=== PATIENT | female | born 1960 | race Caucasian/White ===

== ENCOUNTER 2018-01-11 09:11 | Emergency (ER) | payer MEDICAID ==
[~2018-01-11] VITALS: Ht 165.1 cm; Wt 82.0 kg
[~2018-01-11 09:11] MED LIST: ALBU8I INH; ECASA PO; LAMO150 PO; LISI-357 PO; PARO20TA PO; SIMV20TA PO
[2018-01-11 09:20] VITALS: BP 155/80; PULSE 61; RESP 16; TEMP 98.8; O2SAT 99
--- NOTE | 2018-01-11 09:36 | PD ---
HPI Chief Complaint: Complaint Time Seen by Provider: 09:29 Travel History International Travel<30 days: No Contact w/Intl Traveler<30days: No Traveled to known affect area: No History of Present Illness HPI The patient is a 57-year-old female who presents to the emergency department for dysuria. The patient is from [place], in town visiting family. The patient developed urinary symptoms last Thursday. She complains of dysuria, frequency, urgency, decreased urinary output. She does complain of mild suprapubic discomfort. She denies any nausea, vomiting, or back pain. She denies any vaginal discharge or vaginal bleeding. She denies any CC fever, chills, or sweats. She does have a history of UTIs in the past with similar symptoms, denies any history nephrolithiasis. Symptoms are moderate, no current alleviating or exacerbating factors. PFSH Past Medical History Blood Disorders: No Anxiety: Yes Depression: No Heart Rhythm Problems: No Cancer: No Cardiovascular Problems: Yes High Cholesterol: Yes Chest Pain: No Congestive Heart Failure: No Endocrine: No Genitourinary: No Hypertension: Yes Immune Disorder: No Musculoskeletal: No Neurologic: Yes (EPILEPSY) Psychiatric: Yes Respiratory: No Seizures: Yes Tubal Ligation: Yes Past Surgical History Appendectomy: Yes Hysterectomy: Yes Social History Alcohol Use: No Tobacco Use: Yes Substance Use: No Allergies-Medications (Allergen,Severity, Reaction): Coded Allergies: No Known Allergies (Verified Adverse Reaction, Unknown, 01/11/18) Reported Meds & Prescriptions Reported Meds & Active Scripts Active Lisinopril 5 mg (Lisinopril) 5 Mg Tab 1 Tab PO DAILY Aspirin EC (Aspirin) 325 Mg Tab 325 Mg PO DAILY Reported Ventolin Hfa (Albuterol Sulfate) 8 Gm Aero 2 Puff INH Q4 PRN * SHAKE WELL BEFORE USE * Paroxetine Hcl 20 Mg Tab 20 Mg PO DAILY Simvastatin 20 Mg Tab 20 Mg PO HS Lamictal (Lamotrigine) 150 Mg Tab 250 Mg PO BID Take 1 tablet (150mg) with 100mg tablet for a total dose of 250mg twice daily Review of Systems Except as stated in HPI: all other systems reviewed are Neg General / Constitutional: No: Fever Gastrointestinal: No: Nausea, Vomiting, Abdominal Pain Genitourinary: Positive: Urgency, Frequency, Dysuria, Decreased Urinary Output , Pelvic Pain (suprapubic discomfort), No: Hematuria, Discharge, Vaginal Bleeding Skin: No Rash, No Itching Physical Exam Narrative GENERAL: Awake, alert, pleasant 57-year-old female who appears her stated age and is in no acute respiratory distress. SKIN: Focused skin assessment warm/dry. HEAD: Atraumatic. Normocephalic. EYES: Pupils equal and round. No scleral icterus. No injection or drainage. GASTROINTESTINAL: Abdomen soft, minimal suprapubic tenderness. No guarding or rigidity. Back: No CVA tenderness. MUSCULOSKELETAL: No obvious deformities. No clubbing. No cyanosis. No edema. NEUROLOGICAL: Awake and alert. No obvious cranial nerve deficits. Motor grossly within normal limits. Normal speech. PSYCHIATRIC: Appropriate mood and affect; insight and judgment normal. Data Data Last Documented VS Vital Signs Date Time Temp Pulse Resp B/P (MAP) Pulse Ox O2 Delivery O2 Flow Rate FiO2 01/11/18 09:20 98.8 61 16 155/80 (105) 99 Orders Orders Urinalysis - C+S If Indicated (01/11/18 09:32) Urine Culture (01/11/18 09:40) Labs Laboratory Tests Test 01/11/18 09:40 Urine Color YELLOW Urine Turbidity CLOUDY Urine pH 6.0 Urine Specific [place] 1.020 Urine Protein TRACE mg/dL Urine Glucose (UA) NEG mg/dL Urine Ketones NEG mg/dL Urine Occult Blood MOD Urine Nitrite NEG Urine Bilirubin NEG Urine Urobilinogen LESS THAN 2.0 MG/DL Urine Leukocyte Esterase LARGE Urine RBC 44 /hpf Urine WBC /hpf Urine Squamous Epithelial Cells 1 /hpf Urine Bacteria RARE /hpf Microscopic Urinalysis Comment CULTURE INDICATED [facility] Medical Decision Making Medical Screen Exam Complete: Yes Emergency Medical Condition: Yes Medical Record Reviewed: Yes Interpretation(s) Laboratory Tests Test 01/11/18 09:40 Urine Color YELLOW Urine Turbidity CLOUDY Urine pH 6.0 Urine Specific [place] 1.020 Urine Protein TRACE mg/dL Urine Glucose (UA) NEG mg/dL Urine Ketones NEG mg/dL Urine Occult Blood MOD Urine Nitrite NEG Urine Bilirubin NEG Urine Urobilinogen LESS THAN 2.0 MG/DL Urine Leukocyte Esterase LARGE Urine RBC 44 /hpf Urine WBC /hpf Urine Squamous Epithelial Cells 1 /hpf Urine Bacteria RARE /hpf Microscopic Urinalysis Comment CULTURE INDICATED Differential Diagnosis Differential diagnosis includes UTI, hemorrhagic cystitis, cystitis, pyelonephritis, nephrolithiasis, acute renal failure. Narrative Course A UA with C&S was sent to lab. UA reveals innumerable WBCs, 44 RBCs, and leukocyte Estrace. Patient has symptoms consistent with UTI, will be treated with Bactrim and Pyridium. She is advised to return if symptoms worsen or progress. Cultures are pending. Diagnosis Primary Impression: UTI (urinary tract infection) Qualified Codes: N30.01 - Acute cystitis with hematuria Patient Instructions: General Instructions Additional Instructions: Medications as directed. Return if symptoms worsen or progress. Follow-up with a primary physician. Med/Other Pt SpecificInfo: Prescription(s) given Scripts Phenazopyridine (Pyridium) 100 Mg Tab 200 MG PO Q8H Y for DYSURIA for 2 Days, #12 TAB 0 Refills Prov: Mario Alberto Langston MD 01/11/18 Sulfamethoxazole-Trimethoprim (Bactrim DS) 800-160 Mg Tab 1 TAB PO BID for Infection, #14 TAB 0 Refills Prov: Mario Alberto Langston MD 01/11/18 Disposition: DISCHARGE HOME Condition: Stable Mario Alberto Langston MD Jan 11, 2018 09:36
[2018-01-11 10:03] LABS: BACTERIA, URINE RARE /hpf; BILIRUBIN, URINE NEG (NEG); BLOOD, URINE MOD (NEG); GLUCOSE,URINE NEG (NEG); KETONE, URINE NEG (NEG); NITRITE,URINE NEG (NEG); SQUAMOUS EPITHELIAL CELL URINE 1 /hpf (0-5); URINE COLOR YELLOW (YELLW/STRAW); URINE LEUKOCYTE ESTERASE LARGE (NEG)
[2018-01-11] MEDS ORDERED: BACT800T5 PO (10:22)
[2018-01-11] MEDS ORDERED: PHEN0.4T PO (10:22)
== END 2018-01-11 10:28 | disposition home or self-care (01) ==
LOC: NEPD 09:11
DX: N30.01 Acute cystitis with hematuria (principal); I10 Essential (primary) hypertension; Z72.0 Tobacco use
CPT/HCPCS: 81001; 87086; 99283